=== PATIENT | female | born 1965 | race Two or more races ===

== ENCOUNTER 2021-09-15 18:38 | Emergency (ER) | payer MEDICAID, OTHER ==
[~2021-09-15] VITALS: Ht 157.5 cm; Wt 87.5 kg
[2021-09-15 19:05] VITALS: BP 176/110
[2021-09-15] MEDS ORDERED: IBUP800T26 PO (21:25)
[2021-09-15] MEDS ORDERED: CYCL-837 PO (21:25)
== END 2021-09-15 21:38 | disposition home or self-care (01) ==
LOC: ER 18:38
DX: S39.012A Strain of muscle, fascia and tendon of lower back, initial encounter (principal); I10 Essential (primary) hypertension; V53.5XXA Driver of pick-up truck or van injured in collision with car, pick-up truck or van in traffic accident, initial encounter; Y93.89 Activity, other specified; Y92.410 Unspecified street and highway as the place of occurrence of the external cause; Y99.8 Other external cause status
CPT/HCPCS: 72100

== ENCOUNTER 2022-01-03 11:54 | Emergency (ER) | payer MEDICAID ==
[~2022-01-03 11:54] MED LIST: CYCL-837 PO; IBUP800T26 PO
== END 2022-01-03 12:13 | disposition left against medical advice (07) ==
LOC: ER 11:54
DX: M54.59 Other low back pain (principal); K62.5 Hemorrhage of anus and rectum; Z53.21 Procedure and treatment not carried out due to patient leaving prior to being seen by health care provider

== ENCOUNTER 2022-01-03 14:02 | Emergency (ER) | payer MEDICAID ==
[~2022-01-03] VITALS: Ht 157.5 cm; Wt 86.0 kg
[2022-01-03 15:39] LABS: Basophils # (auto) 0.1 10 ^3/uL (0-0.2); Monocytes # (auto) 0.9 10 ^3/uL (0-1.3); Neutrophils # (auto) 6.5 10 ^3/uL (1.6-8.6); Red Cell Distribution Width 16.6 % (11.8-14.3)
[2022-01-03 15:41] LABS: Basophils % (auto) 0.8 % (0.0-2.0); Eosinophils # (auto) 0.2 10 ^3/uL (0-0.8); Eosinophils % (auto) 1.4 % (0.0-7.0); Hematocrit 40.4 % (36.0-46.0); Hemoglobin 12.8 g/dL (12.2-16.2); Lymphocytes # (auto) 3.9 10 ^3/uL (0.4-5.4); Lymphocytes % (auto) 33.6 % (10.0-50.0); Mean Corpuscular Hemoglobin 25.6 pg (28.0-32.0); Mean Corpuscular Hgb Conc. 31.6 g/dL (32.0-36.0); Monocytes % (auto) 7.4 % (0.0-12.0); Neutrophils % (auto) 56.8 % (37.0-80.0); Nucleated Red Blood Cells % 0.1 %; Red Blood Cells 4.99 10^6/uL (4.0-5.20); White Blood Cell 11.5 10^3/uL (4.4-10.8)
[2022-01-03 15:58] LABS: Albumin 3.4 g/dL (3.4-5.0); BUN/Creatinine Ratio 19.5; Calcium 8.6 mg/dL (8.5-10.1); Potassium 3.6 mmol/L (3.5-5.1)
[2022-01-03 16:00] LABS: Bilirubin, Total 0.2 mg/dL (0.2-1.0); Total Protein 7.2 g/dL (6.4-8.2)
[2022-01-03 16:01] VITALS: BP 165/97
== END 2022-01-03 16:02 | disposition home or self-care (01) ==
LOC: ER 14:02
DX: K64.4 Residual hemorrhoidal skin tags (principal); I10 Essential (primary) hypertension
CPT/HCPCS: 36415; 80053; 85025

== ENCOUNTER 2023-01-14 19:56 | Inpatient (IN) | payer MEDICAID ==
[~2023-01-14] VITALS: Ht 157.5 cm; Wt 89.1 kg
[~2023-01-14 19:56] MED LIST changes: +IBUP-1455 PO; -IBUP800T26 PO
[2023-01-14 20:38] VITALS: PULSE 117; RESP 24; O2SAT 96
[2023-01-14] MEDS ORDERED: SODIUM CHLORIDE 0.9% 500 ML IV ONE (21:00)
[2023-01-14] MEDS ORDERED: ACETAMINOPHEN 500 MG TAB PO ONE (21:00)
[2023-01-14] MEDS ORDERED: CIPROFLOXACIN 400MG/200ML 200 ML IV ONE (21:00)
[2023-01-14] MEDS ORDERED: PIPERACILLIN-TAZO 4.5GM 100 ML IV ONE (21:00)
[2023-01-14 21:07] LABS: Basophils # (auto) 0 10 ^3/uL (0-0.2); Basophils % (auto) 0.2 % (0.0-2.0); Eosinophils # (auto) 0 10 ^3/uL (0-0.8)
[2023-01-14 21:09] LABS: Hemoglobin 13.2 g/dL (12.2-16.2); Lymphocytes # (auto) 1.5 10 ^3/uL (0.4-5.4); Lymphocytes % (auto) 10.1 % (10.0-50.0); Mean Corpuscular Hemoglobin 25.2 pg (28.0-32.0); Mean Corpuscular Hgb Conc. 32.1 g/dL (32.0-36.0); Mean Corpuscular Volume 78.4 fL (80.0-100.0); Monocytes % (auto) 6.4 % (0.0-12.0); Neutrophils # (auto) 12.5 10 ^3/uL (1.6-8.6); Neutrophils % (auto) 83.3 % (37.0-80.0); Red Blood Cells 5.22 10^6/uL (4.0-5.20); Red Cell Distribution Width 17.6 % (11.8-14.3)
[2023-01-14 21:22] LABS: INR 1.22 (0.9-1.15); Partial Thromboplastin Time 34.7 SEC (24.5-34.5); Prothrombin Time 12.6 sec (9.3-11.8)
[2023-01-14 21:28] LABS: Alanine Aminotransferase 27 U/L (7-40); Albumin 4.9 g/dL (3.2-4.8); Alkaline Phosphatase 101 U/L (46-116); Anion Gap 6 (5-15); Aspartate Aminotransferase 53 U/L (13-40); BUN/Creatinine Ratio 11.5 (10.0-20.0); Blood Urea Nitrogen 9 mg/dL (9-23); Calcium 8.6 mg/dL (8.7-10.4); Carbon Dioxide 31 mmol/L (20-30); Chloride 94 mmol/L (98-107); Glucose 130 mg/dL (74-106); Potassium 3.4 mmol/L (3.5-5.1); Sodium 131 mmol/L (136-145)
[2023-01-14 21:29] LABS: Bilirubin, Total 0.5 mg/dL (0.2-1.0); Total Protein 8.2 g/dL (5.7-8.2)
[2023-01-14] MEDS ORDERED: VANCOMYCIN 1GM/200ML 250 ML IV ONE (21:45)
[2023-01-14] MEDS ORDERED: SODIUM CHLORIDE 0.9% 2,750 ML IV ONE (21:45)
[2023-01-14] MEDS ORDERED: ENOXAPARIN SOD 100 MG/1 ML SYRINGE SC ONE (22:00)
[2023-01-14] MEDS ORDERED: ASPirin-EC 325mg tab PO ONE (22:00)
[2023-01-14] MEDS ORDERED: POTASSIUM EFFERVESENT TAB 25 MEQ PO ONE (22:00)
[2023-01-14] MEDS ORDERED: MORPHINE SULFATE INJ 2 MG/ml SYRG IV PRN (22:15)
[2023-01-14] MEDS ORDERED: NITROGLYCERIN 0.4 MG SL TAB SL PRN (22:15)
[2023-01-14 22:33] VITALS: BP 164/107; PULSE 117; RESP 24; TEMP 101.4; O2SAT 96
[2023-01-14 22:39] LABS: COVID19 ANTIGEN SOFIA FIA NEGATIVE (NEGATIVE)
[2023-01-14 22:42] LABS: Rapid Influenza A Negative (Negative); Rapid Influenza B Positive (Negative)
[2023-01-14] MEDS ORDERED: FUROSEMIDE 20 MG/2 ML VIAL IV ONE (22:45)
[2023-01-15] VITALS (13 sets, daily range): BP systolic 110–144; BP diastolic 61–101; PULSE 71–98; RESP 20–28; TEMP 98.2; O2SAT 90–99
[2023-01-15] MEDS: OSELTAMIVIR 75 MG CAP PO SCH ×3 (00:30→23:43)
[2023-01-15 04:52] LABS: Eosinophils # (auto) 0 10 ^3/uL (0-0.8); Hemoglobin 12.1 g/dL (12.2-16.2); Mean Corpuscular Hemoglobin 25.1 pg (28.0-32.0); Monocytes # (auto) 1.4 10 ^3/uL (0-1.3); Neutrophils # (auto) 11.4 10 ^3/uL (1.6-8.6); Red Cell Distribution Width 17.7 % (11.8-14.3)
[2023-01-15 04:54] LABS: Basophils # (auto) 0.1 10 ^3/uL (0-0.2); Basophils % (auto) 0.4 % (0.0-2.0); Hematocrit 38.4 % (36.0-46.0); Lymphocytes # (auto) 2.1 10 ^3/uL (0.4-5.4); Mean Corpuscular Hgb Conc. 31.4 g/dL (32.0-36.0); Mean Corpuscular Volume 79.9 fL (80.0-100.0); Monocytes % (auto) 9.1 % (0.0-12.0); Neutrophils % (auto) 76.5 % (37.0-80.0); White Blood Cell 14.9 10^3/uL (4.4-10.8)
[2023-01-15 05:08] LABS: Alanine Aminotransferase 25 U/L (7-40); Albumin 4.2 g/dL (3.2-4.8); Alkaline Phosphatase 83 U/L (46-116); Anion Gap 5 (5-15); BUN/Creatinine Ratio 17.1 (10.0-20.0); Blood Urea Nitrogen 14 mg/dL (9-23); Calcium 7.6 mg/dL (8.7-10.4); Carbon Dioxide 31 mmol/L (20-30); Chloride 97 mmol/L (98-107); Glucose 115 mg/dL (74-106); Potassium 4.1 mmol/L (3.5-5.1); Sodium 133 mmol/L (136-145)
[2023-01-15 05:09] LABS: Aspartate Aminotransferase 51 U/L (13-40); Bilirubin, Total 0.5 mg/dL (0.2-1.0); Total Protein 6.9 g/dL (5.7-8.2)
[2023-01-15] MEDS ORDERED: cefTRIAXone 1GM/50ML D5W 50 ML IV SCH (09:00)
[2023-01-15] MEDS: ENOXAPARIN SOD 40 MG/0.4 ML SYRINGE SC SCH (09:41)
[2023-01-15] MEDS: FUROSEMIDE 20 MG TAB PO SCH (09:42)
[2023-01-15] MEDS: METOPROLOL TARTRATE 25 MG TAB PO SCH ×2 (09:42→23:44)
[2023-01-15] MEDS: ASPirin 81 mg TAB PO SCH (09:42)
[2023-01-15 10:01] LABS: Triglycerides 54 mg/dL (< 150)
[2023-01-15 10:02] LABS: LDL Cholesterol 79 mg/dL (< 100)
[2023-01-15 10:03] LABS: Cholesterol 158 mg/dL (< 200); HDL Cholesterol 61 mg/dL (40-59)
[2023-01-15 10:21] LABS: Urine Bacteria FEW /hpf (None Seen); Urine Blood Negative /uL (Negative); Urine Clarity Clear (Clear); Urine Protein, UAD TRACE (Negative); Urine Urobilinogen Normal (Negative); Urine WBC 1 /hpf (0 - 5)
[2023-01-15 10:23] LABS: Urine Color Straw (Yellow)
[2023-01-15] MEDS: AZITHROMYCIN 500MG/ 250ML 250 ML IV SCH (10:25)
[2023-01-15] MEDS: ALBUTEROL SULF 2.5 MG/0.5ML(0.5%) NEB SOLN NEB PRN ×2 (11:23→20:04)
[2023-01-15] MEDS: BUDESONIDE (INHALATION) 0.5 MG/2 ML NEB NEB SCH (20:04)
[2023-01-15] MEDS: TEMAZEPAM 15 MG CAP PO PRN (23:43)
[2023-01-16] VITALS (20 sets, daily range): BP systolic 117–127; BP diastolic 74–81; PULSE 67–90; RESP 18–26; TEMP 97.3–98.3; O2SAT 90–99
[2023-01-16] MEDS: BUDESONIDE (INHALATION) 0.5 MG/2 ML NEB NEB SCH ×2 (07:35→18:45)
[2023-01-16] MEDS: AZITHROMYCIN 500MG/ 250ML 250 ML IV SCH (10:09)
[2023-01-16] MEDS: ENOXAPARIN SOD 40 MG/0.4 ML SYRINGE SC SCH (10:10)
[2023-01-16] MEDS: FUROSEMIDE 20 MG TAB PO SCH (10:10)
[2023-01-16] MEDS: ASPirin 81 mg TAB PO SCH (10:10)
[2023-01-16] MEDS: OSELTAMIVIR 75 MG CAP PO SCH ×2 (10:10→22:07)
[2023-01-16] MEDS: METOPROLOL TARTRATE 25 MG TAB PO SCH ×2 (10:11→22:00)
[2023-01-16] MEDS: ACETAMINOPHEN 325 MG TAB PO PRN ×2 (10:58→23:13)
[2023-01-16] MEDS: ALBUTEROL SULF 2.5 MG/0.5ML(0.5%) NEB SOLN NEB PRN ×2 (11:00→23:40)
[2023-01-16] MEDS: methylPREDNISolone SOD SUCC 40 MG/ML VL IV SCH ×2 (14:59→22:07)
[2023-01-16] MEDS: TEMAZEPAM 15 MG CAP PO PRN (23:13)
[2023-01-17] VITALS (40 sets, daily range): BP systolic 87–194; BP diastolic 60–159; PULSE 47–78; RESP 12–20; TEMP 97.4–98.8; O2SAT 85–100
[2023-01-17] MEDS: methylPREDNISolone SOD SUCC 40 MG/ML VL IV SCH ×4 (06:22→22:16)
[2023-01-17] MEDS: ONDANSETRON HCL 4 MG/2 ML VIAL IV PRN ×2 (06:56→11:34)
[2023-01-17 06:58] LABS: Basophils # (auto) 0 10 ^3/uL (0-0.2); Basophils % (auto) 0.2 % (0.0-2.0); Eosinophils # (auto) 0 10 ^3/uL (0-0.8); Hemoglobin 11.8 g/dL (12.2-16.2); Lymphocytes # (auto) 1.9 10 ^3/uL (0.4-5.4); Monocytes # (auto) 0.7 10 ^3/uL (0-1.3)
[2023-01-17 07:00] LABS: Hematocrit 37.4 % (36.0-46.0); Lymphocytes % (auto) 27.7 % (10.0-50.0); Mean Corpuscular Hemoglobin 25.5 pg (28.0-32.0); Mean Corpuscular Hgb Conc. 31.6 g/dL (32.0-36.0); Mean Corpuscular Volume 80.6 fL (80.0-100.0); Monocytes % (auto) 9.8 % (0.0-12.0); Neutrophils # (auto) 4.2 10 ^3/uL (1.6-8.6); Neutrophils % (auto) 62.3 % (37.0-80.0); Nucleated Red Blood Cells % 0.1 %; Red Blood Cells 4.64 10^6/uL (4.0-5.20); Red Cell Distribution Width 17.2 % (11.8-14.3); White Blood Cell 6.7 10^3/uL (4.4-10.8)
[2023-01-17] MEDS: BUDESONIDE (INHALATION) 0.5 MG/2 ML NEB NEB SCH ×2 (07:12→19:02)
[2023-01-17 07:29] LABS: Alanine Aminotransferase 60 U/L (7-40); Alkaline Phosphatase 81 U/L (46-116); Anion Gap 3 (5-15); Aspartate Aminotransferase 71 U/L (13-40); BUN/Creatinine Ratio 21.8 (10.0-20.0); Bilirubin, Total 0.3 mg/dL (0.2-1.0); Blood Urea Nitrogen 12 mg/dL (9-23); Calcium 8.6 mg/dL (8.5-10.1); Carbon Dioxide 37 mmol/L (20-30); Chloride 97 mmol/L (98-107); Glucose 97 mg/dL (74-106); Sodium 137 mmol/L (136-145); Total Protein 6.6 g/dL (5.7-8.2)
[2023-01-17] MEDS: AZITHROMYCIN 500MG/ 250ML 250 ML IV SCH (10:21)
[2023-01-17] MEDS: OSELTAMIVIR 75 MG CAP PO SCH ×2 (10:22→22:17)
[2023-01-17] MEDS: FUROSEMIDE 20 MG TAB PO SCH (10:22)
[2023-01-17] MEDS: ENOXAPARIN SOD 40 MG/0.4 ML SYRINGE SC SCH (10:22)
[2023-01-17] MEDS: ASPirin 81 mg TAB PO SCH (10:23)
[2023-01-17] MEDS: METOPROLOL TARTRATE 25 MG TAB PO SCH ×2 (10:23→22:00)
[2023-01-17] MEDS: ACETAMINOPHEN 325 MG TAB PO PRN (11:35)
[2023-01-17 11:52] LABS: Base Excess 8.2 mmol/L (-2.0-2.0)
[2023-01-17] MEDS ORDERED: LORazepam 2MG/ML-1ML VIAL IV PRN (13:00)
[2023-01-17] MEDS ORDERED: ETOMIDATE (2MG/ML) 20ML VIAL IV ONE ×2 (16:18→16:34)
[2023-01-17] MEDS ORDERED: ROCURONIUM 10MG/ML 10ML VIAL IV ONE (16:18)
[2023-01-17] MEDS ORDERED: SUCCINYLCHOLINE CHLORIDE 20 MG/ML 10ML VIAL IV ONE ×2 (16:19→16:34)
[2023-01-17] MEDS ORDERED: fentaNYL Drip 2500mCg/250mlNS 250 ML IV ONE (16:20)
[2023-01-17] MEDS ORDERED: MIDAZOLAM DRIP 50 mg/50mL 50 ML IV ONE (16:21)
[2023-01-17] MEDS ORDERED: PROPOFOL 100 ML IV ONE (16:50)
[2023-01-17] MEDS: fentaNYL Drip 2500mCg/250mlNS 250 ML IV SCH ×2 (16:59→23:45)
[2023-01-17] MEDS: NOREPINEPHRINE 8 MG/250ML KIT 250 ML IV SCH (17:00)
[2023-01-17] MEDS: MIDAZOLAM DRIP 50 mg/50mL 50 ML IV SCH ×2 (17:02→20:33)
[2023-01-17] MEDS: PROPOFOL 100 ML IV SCH (17:03)
[2023-01-17 17:21] LABS: Base Excess 12.1 mmol/L (-2.0-2.0)
[2023-01-17] MEDS: PIPERACILLIN-TAZOB 3.375GM 100 ML IV SCH (18:26)
[2023-01-17 19:00] LABS: Base Excess 5.8 mmol/L (-2.0-2.0)
[2023-01-17] MEDS: ALBUTEROL SULF 2.5 MG/0.5ML(0.5%) NEB SOLN NEB PRN (19:02)
[2023-01-17] MEDS ORDERED: FUROSEMIDE 20 MG/2 ML VIAL IV ONE (23:00)
[2023-01-17] MEDS ORDERED: FUROSEMIDE 20 MG/2 ML VIAL ONE (23:38)
[2023-01-18] VITALS (89 sets, daily range): BP systolic 86–168; BP diastolic 49–103; PULSE 48–92; RESP 0–28; TEMP 97.9–99.5; O2SAT 95–100
[2023-01-18] MEDS: ALBUTEROL SULF 2.5 MG/0.5ML(0.5%) NEB SOLN NEB PRN ×4 (00:14→22:48)
[2023-01-18] MEDS: PIPERACILLIN-TAZOB 3.375GM 100 ML IV SCH ×3 (02:00→18:18)
[2023-01-18 05:26] LABS: Basophils # (auto) 0 10 ^3/uL (0-0.2); Basophils % (auto) 0.1 % (0.0-2.0); Eosinophils # (auto) 0 10 ^3/uL (0-0.8); Mean Corpuscular Hemoglobin 25.1 pg (28.0-32.0)
[2023-01-18 05:28] LABS: Hematocrit 35.7 % (36.0-46.0); Hemoglobin 11.2 g/dL (12.2-16.2); Lymphocytes # (auto) 1.4 10 ^3/uL (0.4-5.4); Lymphocytes % (auto) 24.6 % (10.0-50.0); Mean Corpuscular Hgb Conc. 31.4 g/dL (32.0-36.0); Mean Corpuscular Volume 79.7 fL (80.0-100.0); Monocytes # (auto) 0.5 10 ^3/uL (0-1.3); Monocytes % (auto) 8.3 % (0.0-12.0); Neutrophils # (auto) 3.8 10 ^3/uL (1.6-8.6); Nucleated Red Blood Cells % 0.3 %; Red Blood Cells 4.47 10^6/uL (4.0-5.20); Red Cell Distribution Width 17.7 % (11.8-14.3); White Blood Cell 5.7 10^3/uL (4.4-10.8)
[2023-01-18 05:53] LABS: Alanine Aminotransferase 46 U/L (7-40); Albumin 3.9 g/dL (3.2-4.8); Alkaline Phosphatase 72 U/L (46-116); Anion Gap 7 (5-15); Aspartate Aminotransferase 26 U/L (13-40); BUN/Creatinine Ratio 15.9 (10.0-20.0); Bilirubin, Total 0.5 mg/dL (0.2-1.0); Blood Urea Nitrogen 14 mg/dL (9-23); Calcium 8.3 mg/dL (8.5-10.1); Carbon Dioxide 36 mmol/L (20-30); Chloride 94 mmol/L (98-107); Glucose 155 mg/dL (74-106); Sodium 137 mmol/L (136-145); Total Protein 6.3 g/dL (5.7-8.2)
[2023-01-18] MEDS: methylPREDNISolone SOD SUCC 40 MG/ML VL IV SCH ×4 (06:00→22:34)
[2023-01-18] MEDS: fentaNYL Drip 2500mCg/250mlNS 250 ML IV SCH ×2 (06:39→13:53)
[2023-01-18 07:26] LABS: Base Excess 12.6 mmol/L (-2.0-2.0)
[2023-01-18] MEDS: MIDAZOLAM DRIP 50 mg/50mL 50 ML IV SCH ×2 (07:30→12:16)
[2023-01-18] MEDS: BUDESONIDE (INHALATION) 0.5 MG/2 ML NEB NEB SCH ×2 (07:33→18:30)
[2023-01-18] MEDS ORDERED: IOHEXOL 350 MG/ML 100ML IJ ONE (08:39)
[2023-01-18] MEDS: METOPROLOL TARTRATE 25 MG TAB PO SCH ×2 (10:00→22:00)
[2023-01-18] MEDS: OSELTAMIVIR 75 MG CAP PO SCH ×2 (10:26→22:35)
[2023-01-18] MEDS: ENOXAPARIN SOD 40 MG/0.4 ML SYRINGE SC SCH (10:26)
[2023-01-18] MEDS: FUROSEMIDE 20 MG/2 ML VIAL IV SCH (10:27)
[2023-01-18] MEDS: AZITHROMYCIN 500MG/ 250ML 250 ML IV SCH (10:27)
[2023-01-18] MEDS: ASPirin 81 mg TAB PO SCH (10:44)
[2023-01-18] MEDS ORDERED: TPN PER PHARMACY 0 ML IV SCH (11:15)
[2023-01-18 11:18] LABS: Phosphorus 2.5 mg/dL (2.4-5.1)
[2023-01-18 11:55] LABS: Magnesium 1.9 mg/dL (1.6-2.6)
[2023-01-18] MEDS: NOREPINEPHRINE 8 MG/250ML KIT 250 ML IV SCH (12:45)
[2023-01-18] MEDS ORDERED: DOPamine 1600MCG/ML D5W 250 ML IV ONE (13:45)
[2023-01-18] MEDS: DOPamine 1600MCG/ML D5W 250 ML IV SCH (13:55)
[2023-01-18] MEDS: PROPOFOL 100 ML IV SCH (14:51)
[2023-01-18] MEDS ORDERED: CALCIUM GLUC 1,000mg/50ml-NS 50 ML IV ONE (16:00)
[2023-01-18] MEDS: TPN PER PHARMACY IV NR ×20 (20:00→22:56)
[2023-01-18] MEDS: DOXYCYCLINE 100MG/250ML 250 ML IV SCH (22:35)
[2023-01-18] MEDS: ACCU-CHEK COMFORT CURVE STRIP VI SCH (23:31)
[2023-01-18] MEDS: InsuLIN REG 1unit/0.01ml Soln (100units/ml) SC SCH (23:32)
[2023-01-19] VITALS (109 sets, daily range): BP systolic 84–179; BP diastolic 52–92; PULSE 50–75; RESP 7–20; TEMP 97.7–98.6; O2SAT 95–100
[2023-01-19] MEDS ORDERED: DEXTROSE (50%) 50ML SYRG IV SCH
[2023-01-19] MEDS: PIPERACILLIN-TAZOB 3.375GM 100 ML IV SCH ×3 (01:11→18:31)
[2023-01-19] MEDS: fentaNYL Drip 2500mCg/250mlNS 250 ML IV SCH ×2 (01:39→16:08)
[2023-01-19 04:12] LABS: Basophils # (auto) 0 10 ^3/uL (0-0.2); Eosinophils # (auto) 0 10 ^3/uL (0-0.8); Neutrophils # (auto) 5.1 10 ^3/uL (1.6-8.6); Nucleated Red Blood Cells % 0.1 %; White Blood Cell 7.3 10^3/uL (4.4-10.8)
[2023-01-19 04:13] LABS: Basophils % (auto) 0.4 % (0.0-2.0); Hematocrit 34.6 % (36.0-46.0); Lymphocytes # (auto) 1.5 10 ^3/uL (0.4-5.4); Lymphocytes % (auto) 20.2 % (10.0-50.0); Mean Corpuscular Hemoglobin 25.1 pg (28.0-32.0); Mean Corpuscular Hgb Conc. 31.8 g/dL (32.0-36.0); Mean Corpuscular Volume 78.9 fL (80.0-100.0); Monocytes # (auto) 0.7 10 ^3/uL (0-1.3); Monocytes % (auto) 9.2 % (0.0-12.0); Neutrophils % (auto) 70.2 % (37.0-80.0); Red Blood Cells 4.39 10^6/uL (4.0-5.20); Red Cell Distribution Width 17.4 % (11.8-14.3)
[2023-01-19] MEDS: DOPamine 1600MCG/ML D5W 250 ML IV SCH ×2 (04:20→18:33)
[2023-01-19 04:28] LABS: Alanine Aminotransferase 33 U/L (7-40); Albumin 3.8 g/dL (3.2-4.8); Alkaline Phosphatase 64 U/L (46-116); Anion Gap 3 (5-15); Aspartate Aminotransferase 19 U/L (13-40); BUN/Creatinine Ratio 17.3 (10.0-20.0); Bilirubin, Total 0.4 mg/dL (0.2-1.0); Blood Urea Nitrogen 13 mg/dL (9-23); Calcium 8.2 mg/dL (8.7-10.4); Carbon Dioxide 39 mmol/L (20-30); Chloride 97 mmol/L (98-107); Glucose 182 mg/dL (74-106); Magnesium 2.4 mg/dL (1.6-2.6); Phosphorus 3.1 mg/dL (2.4-5.1); Sodium 139 mmol/L (136-145); Total Protein 6.2 g/dL (5.7-8.2)
[2023-01-19] MEDS: methylPREDNISolone SOD SUCC 40 MG/ML VL IV SCH ×3 (06:06→22:09)
[2023-01-19] MEDS: ACCU-CHEK COMFORT CURVE STRIP VI SCH ×4 (06:06→23:50)
[2023-01-19] MEDS: InsuLIN REG 1unit/0.01ml Soln (100units/ml) SC SCH ×4 (06:07→23:51)
[2023-01-19 07:57] LABS: Base Excess 11.5 mmol/L (-2.0-2.0)
[2023-01-19] MEDS: OSELTAMIVIR 75 MG CAP PO SCH ×2 (09:36→22:10)
[2023-01-19] MEDS: ENOXAPARIN SOD 40 MG/0.4 ML SYRINGE SC SCH (09:36)
[2023-01-19] MEDS: ASPirin 81 mg TAB PO SCH (09:37)
[2023-01-19] MEDS: DOXYCYCLINE 100MG/250ML 250 ML IV SCH ×2 (09:38→22:09)
[2023-01-19] MEDS: METOPROLOL TARTRATE 25 MG TAB PO SCH ×2 (10:00→22:00)
[2023-01-19] MEDS: ALBUTEROL SULF 2.5 MG/0.5ML(0.5%) NEB SOLN NEB PRN ×2 (10:19→18:36)
[2023-01-19] MEDS: BUDESONIDE (INHALATION) 0.5 MG/2 ML NEB NEB SCH ×2 (10:19→18:36)
[2023-01-19] MEDS: MIDAZOLAM DRIP 50 mg/50mL 50 ML IV SCH (11:07)
[2023-01-19] MEDS: FUROSEMIDE 20 MG/2 ML VIAL IV SCH (11:08)
[2023-01-19] MEDS ORDERED: CALCIUM GLUC 1,000mg/50ml-NS 50 ML IV ONE (13:00)
[2023-01-19] MEDS: PROPOFOL 100 ML IV SCH (16:39)
[2023-01-19] MEDS: NOREPINEPHRINE 8 MG/250ML KIT 250 ML IV SCH (18:30)
[2023-01-19] MEDS ORDERED: TPN PER PHARMACY IV NR ×10 (20:00)
[2023-01-20] VITALS (107 sets, daily range): BP systolic 84–138; BP diastolic 50–85; PULSE 51–81; RESP 13–19; TEMP 96.6–99; O2SAT 94–100
[2023-01-20] MEDS: PIPERACILLIN-TAZOB 3.375GM 100 ML IV SCH ×3 (02:00→18:07)
[2023-01-20] MEDS: ALBUTEROL SULF 2.5 MG/0.5ML(0.5%) NEB SOLN NEB PRN ×3 (02:04→21:56)
[2023-01-20] MEDS: MIDAZOLAM DRIP 50 mg/50mL 50 ML IV SCH ×4 (03:46→19:48)
[2023-01-20 04:40] LABS: Alanine Aminotransferase 27 U/L (7-40); Albumin 3.8 g/dL (3.2-4.8); Alkaline Phosphatase 56 U/L (46-116); Anion Gap 4 (5-15); Aspartate Aminotransferase 14 U/L (13-40); BUN/Creatinine Ratio 21.9 (10.0-20.0); Blood Urea Nitrogen 14 mg/dL (9-23); Calcium 8.1 mg/dL (8.7-10.4); Carbon Dioxide 37 mmol/L (20-30); Chloride 97 mmol/L (98-107); Glucose 175 mg/dL (74-106); Magnesium 2.4 mg/dL (1.6-2.6); Potassium 3.8 mmol/L (3.5-5.1); Sodium 138 mmol/L (136-145)
[2023-01-20 04:41] LABS: Bilirubin, Total 0.3 mg/dL (0.2-1.0); Phosphorus 3.9 mg/dL (2.4-5.1)
[2023-01-20] MEDS: ACCU-CHEK COMFORT CURVE STRIP VI SCH ×3 (05:15→18:07)
[2023-01-20] MEDS: methylPREDNISolone SOD SUCC 40 MG/ML VL IV SCH ×3 (05:15→22:07)
[2023-01-20] MEDS: InsuLIN REG 1unit/0.01ml Soln (100units/ml) SC SCH ×3 (05:16→18:28)
[2023-01-20] MEDS: BUDESONIDE (INHALATION) 0.5 MG/2 ML NEB NEB SCH ×2 (06:27→21:56)
[2023-01-20] MEDS: DOPamine 1600MCG/ML D5W 250 ML IV SCH (09:26)
[2023-01-20] MEDS: FUROSEMIDE 20 MG/2 ML VIAL IV SCH (09:26)
[2023-01-20] MEDS: DOXYCYCLINE 100MG/250ML 250 ML IV SCH ×2 (09:29→22:07)
[2023-01-20] MEDS: ASPirin 81 mg TAB PO SCH (09:30)
[2023-01-20] MEDS: METOPROLOL TARTRATE 25 MG TAB PO SCH ×2 (09:30→22:00)
[2023-01-20] MEDS: ENOXAPARIN SOD 40 MG/0.4 ML SYRINGE SC SCH (09:31)
[2023-01-20] MEDS ORDERED: QUEtiapine FUMARATE 25 MG TAB PO ONE (10:15)
[2023-01-20] MEDS: PROPOFOL 100 ML IV SCH (11:28)
[2023-01-20 12:43] LABS: Base Excess 11.4 mmol/L (-2.0-2.0)
[2023-01-20] MEDS: fentaNYL Drip 2500mCg/250mlNS 250 ML IV SCH (15:00)
[2023-01-20] MEDS: GABAPENTIN 300 MG CAP PO SCH ×2 (18:07→22:07)
[2023-01-20] MEDS: NOREPINEPHRINE 8 MG/250ML KIT 250 ML IV SCH (18:50)
[2023-01-20] MEDS ORDERED: TPN PER PHARMACY IV NR ×20 (20:00)
[2023-01-20] MEDS: QUEtiapine FUMARATE 25 MG TAB PO SCH (22:07)
[2023-01-21] VITALS (97 sets, daily range): BP systolic 86–140; BP diastolic 52–86; PULSE 50–72; RESP 18; TEMP 97.3–99.1; O2SAT 88–100
[2023-01-21] MEDS: DOPamine 1600MCG/ML D5W 250 ML IV SCH ×2 (00:05→06:13)
[2023-01-21] MEDS: InsuLIN REG 1unit/0.01ml Soln (100units/ml) SC SCH ×4 (00:27→18:24)
[2023-01-21] MEDS: ACCU-CHEK COMFORT CURVE STRIP VI SCH ×4 (00:27→18:23)
[2023-01-21] MEDS: fentaNYL Drip 2500mCg/250mlNS 250 ML IV SCH ×3 (01:26→22:15)
[2023-01-21] MEDS: PIPERACILLIN-TAZOB 3.375GM 100 ML IV SCH ×3 (01:26→20:39)
[2023-01-21] MEDS: MIDAZOLAM DRIP 50 mg/50mL 50 ML IV SCH ×4 (03:12→22:14)
[2023-01-21 04:51] LABS: Basophils # (auto) 0 10 ^3/uL (0-0.2); Eosinophils # (auto) 0 10 ^3/uL (0-0.8); Hemoglobin 10.5 g/dL (12.2-16.2); Nucleated Red Blood Cells % 0.1 %; Red Cell Distribution Width 17.4 % (11.8-14.3)
[2023-01-21 04:55] LABS: Basophils % (auto) 0.3 % (0.0-2.0); Hematocrit 33.5 % (36.0-46.0); Lymphocytes # (auto) 1.8 10 ^3/uL (0.4-5.4); Lymphocytes % (auto) 14.8 % (10.0-50.0); Mean Corpuscular Hemoglobin 24.9 pg (28.0-32.0); Mean Corpuscular Hgb Conc. 31.5 g/dL (32.0-36.0); Mean Corpuscular Volume 79.3 fL (80.0-100.0); Monocytes # (auto) 0.9 10 ^3/uL (0-1.3); Monocytes % (auto) 7.5 % (0.0-12.0); Neutrophils # (auto) 9.4 10 ^3/uL (1.6-8.6); Neutrophils % (auto) 77.4 % (37.0-80.0); Red Blood Cells 4.22 10^6/uL (4.0-5.20); White Blood Cell 12.1 10^3/uL (4.4-10.8)
[2023-01-21 05:09] LABS: Alanine Aminotransferase 26 U/L (7-40); Albumin 3.7 g/dL (3.2-4.8); Alkaline Phosphatase 54 U/L (46-116); Anion Gap 3 (5-15); Aspartate Aminotransferase 16 U/L (13-40); BUN/Creatinine Ratio 17.4 (10.0-20.0); Bilirubin, Total 0.3 mg/dL (0.2-1.0); Blood Urea Nitrogen 12 mg/dL (9-23); Calcium 7.8 mg/dL (8.7-10.4); Carbon Dioxide 37 mmol/L (20-30); Chloride 99 mmol/L (98-107); Glucose 198 mg/dL (74-106); Magnesium 2.4 mg/dL (1.6-2.6); Phosphorus 3.9 mg/dL (2.4-5.1); Potassium 4.1 mmol/L (3.5-5.1); Sodium 139 mmol/L (136-145)
[2023-01-21] MEDS: methylPREDNISolone SOD SUCC 40 MG/ML VL IV SCH ×3 (05:30→20:40)
[2023-01-21] MEDS: GABAPENTIN 300 MG CAP PO SCH ×3 (05:30→20:39)
[2023-01-21] MEDS: ALBUTEROL SULF 2.5 MG/0.5ML(0.5%) NEB SOLN NEB PRN ×2 (06:10→22:29)
[2023-01-21] MEDS: BUDESONIDE (INHALATION) 0.5 MG/2 ML NEB NEB SCH ×2 (06:10→22:29)
[2023-01-21 06:50] LABS: Base Excess 8.1 mmol/L (-2.0-2.0)
[2023-01-21] MEDS: DOXYCYCLINE 100MG/250ML 250 ML IV SCH ×2 (10:02→20:39)
[2023-01-21] MEDS: ENOXAPARIN SOD 40 MG/0.4 ML SYRINGE SC SCH (10:03)
[2023-01-21] MEDS: FUROSEMIDE 20 MG/2 ML VIAL IV SCH (10:03)
[2023-01-21] MEDS: QUEtiapine FUMARATE 25 MG TAB PO SCH ×2 (10:03→20:39)
[2023-01-21] MEDS: ASPirin 81 mg TAB PO SCH (10:03)
[2023-01-21] MEDS ORDERED: CALCIUM GLUC 1,000mg/50ml-NS 50 ML IV ONE (10:45)
[2023-01-21] MEDS: PROPOFOL 100 ML IV SCH (15:42)
[2023-01-21] MEDS: NOREPINEPHRINE 8 MG/250ML KIT 250 ML IV SCH (19:00)
[2023-01-21] MEDS ORDERED: TPN PER PHARMACY IV NR ×10 (20:00)
[2023-01-21] MEDS ORDERED: FUROSEMIDE 20 MG/2 ML VIAL IV ONE (22:00)
[2023-01-21] MEDS: INSULIN LANTUS (GLARGINE) 1 /0.01ml (100units/ml) SC SCH (22:15)
[2023-01-22] VITALS (107 sets, daily range): BP systolic 81–119; BP diastolic 41–72; PULSE 56–68; RESP 14–19; TEMP 98.2–99.3; O2SAT 93–100
[2023-01-22] MEDS: ACCU-CHEK COMFORT CURVE STRIP VI SCH ×5 (00:20→23:42)
[2023-01-22] MEDS: InsuLIN REG 1unit/0.01ml Soln (100units/ml) SC SCH ×5 (00:21→23:43)
[2023-01-22 04:32] LABS: Alanine Aminotransferase 71 U/L (7-40); Alkaline Phosphatase 51 U/L (46-116); Anion Gap 3 (5-15); Aspartate Aminotransferase 44 U/L (13-40); Carbon Dioxide 38 mmol/L (20-30); Chloride 98 mmol/L (98-107); Glucose 202 mg/dL (74-106); Potassium 4.2 mmol/L (3.5-5.1); Sodium 139 mmol/L (136-145)
[2023-01-22 04:33] LABS: Albumin 3.6 g/dL (3.2-4.8); BUN/Creatinine Ratio 25.3 (10.0-20.0); Blood Urea Nitrogen 19 mg/dL (9-23); Magnesium 2.5 mg/dL (1.6-2.6)
[2023-01-22 04:35] LABS: Bilirubin, Total 0.3 mg/dL (0.2-1.0); Total Protein 5.9 g/dL (5.7-8.2)
[2023-01-22] MEDS: PIPERACILLIN-TAZOB 3.375GM 100 ML IV SCH ×2 (04:35→10:56)
[2023-01-22] MEDS: DOPamine 1600MCG/ML D5W 250 ML IV SCH ×2 (04:35→16:22)
[2023-01-22] MEDS: methylPREDNISolone SOD SUCC 40 MG/ML VL IV SCH ×3 (05:19→21:55)
[2023-01-22] MEDS: GABAPENTIN 300 MG CAP PO SCH ×3 (05:19→21:55)
[2023-01-22] MEDS: MIDAZOLAM DRIP 50 mg/50mL 50 ML IV SCH ×3 (05:34→20:16)
[2023-01-22] MEDS: ALBUTEROL SULF 2.5 MG/0.5ML(0.5%) NEB SOLN NEB PRN (06:32)
[2023-01-22] MEDS: BUDESONIDE (INHALATION) 0.5 MG/2 ML NEB NEB SCH ×2 (06:32→22:15)
[2023-01-22 08:10] LABS: Basophils # (auto) 0 10 ^3/uL (0-0.2); Basophils % (auto) 0.3 % (0.0-2.0); Eosinophils # (auto) 0 10 ^3/uL (0-0.8); Eosinophils % (auto) 0.1 % (0.0-7.0); Hematocrit 33.1 % (36.0-46.0); Hemoglobin 10.4 g/dL (12.2-16.2); Lymphocytes # (auto) 1.6 10 ^3/uL (0.4-5.4); Lymphocytes % (auto) 13.5 % (10.0-50.0); Mean Corpuscular Hemoglobin 25.1 pg (28.0-32.0); Mean Corpuscular Hgb Conc. 31.6 g/dL (32.0-36.0); Mean Corpuscular Volume 79.6 fL (80.0-100.0); Monocytes # (auto) 0.7 10 ^3/uL (0-1.3); Monocytes % (auto) 5.6 % (0.0-12.0); Neutrophils # (auto) 9.6 10 ^3/uL (1.6-8.6); Neutrophils % (auto) 80.5 % (37.0-80.0); Nucleated Red Blood Cells % 0.1 %; Red Blood Cells 4.15 10^6/uL (4.0-5.20); Red Cell Distribution Width 18.1 % (11.8-14.3)
[2023-01-22] MEDS: FUROSEMIDE 20 MG/2 ML VIAL IV SCH (08:45)
[2023-01-22] MEDS: ENOXAPARIN SOD 40 MG/0.4 ML SYRINGE SC SCH (08:45)
[2023-01-22] MEDS: QUEtiapine FUMARATE 25 MG TAB PO SCH ×2 (08:45→21:55)
[2023-01-22] MEDS: DOXYCYCLINE 100MG/250ML 250 ML IV SCH (08:45)
[2023-01-22] MEDS: ASPirin 81 mg TAB PO SCH (08:47)
[2023-01-22] MEDS: fentaNYL Drip 2500mCg/250mlNS 250 ML IV SCH ×2 (11:04→22:42)
[2023-01-22] MEDS: IPRATROPIUM BROM 0.5 MG/2.5ML INH SOL NEB SCH ×3 (14:55→22:15)
[2023-01-22] MEDS: ALBUTEROL SULF 2.5 MG/0.5ML(0.5%) NEB SOLN NEB SCH ×3 (14:55→22:15)
[2023-01-22] MEDS ORDERED: cefTRIAXone 1GM/50ML D5W 50 ML IV ONE (15:04)
[2023-01-22] MEDS: cefTRIAXone 1GM/50ML D5W 50 ML IV SCH (15:05)
[2023-01-22] MEDS: NOREPINEPHRINE 8 MG/250ML KIT 250 ML IV SCH (16:22)
[2023-01-22] MEDS: PROPOFOL 100 ML IV SCH ×2 (17:00→20:17)
[2023-01-22] MEDS ORDERED: TPN PER PHARMACY IV NR ×9 (20:00)
[2023-01-22] MEDS: TPN PER PHARMACY IV NR ×8 (20:16)
[2023-01-22] MEDS: INSULIN LANTUS (GLARGINE) 1 /0.01ml (100units/ml) SC SCH (22:01)
[2023-01-23] VITALS (111 sets, daily range): BP systolic 85–118; BP diastolic 43–70; PULSE 56–120; RESP 15–21; TEMP 98.2–99.7; O2SAT 81–100
[2023-01-23] MEDS: MIDAZOLAM DRIP 50 mg/50mL 50 ML IV SCH ×2 (02:06→15:41)
[2023-01-23] MEDS: IPRATROPIUM BROM 0.5 MG/2.5ML INH SOL NEB SCH ×6 (02:15→22:34)
[2023-01-23] MEDS: ALBUTEROL SULF 2.5 MG/0.5ML(0.5%) NEB SOLN NEB SCH ×6 (02:15→22:34)
[2023-01-23 03:58] LABS: Eosinophils # (auto) 0 10 ^3/uL (0-0.8); Hemoglobin 10.2 g/dL (12.2-16.2); Monocytes # (auto) 0.9 10 ^3/uL (0-1.3); Monocytes % (auto) 6.8 % (0.0-12.0); Red Cell Distribution Width 17.6 % (11.8-14.3)
[2023-01-23 04:01] LABS: Basophils # (auto) 0.1 10 ^3/uL (0-0.2); Basophils % (auto) 0.4 % (0.0-2.0); Hematocrit 32.3 % (36.0-46.0); Lymphocytes # (auto) 1.9 10 ^3/uL (0.4-5.4); Lymphocytes % (auto) 14.1 % (10.0-50.0); Mean Corpuscular Hemoglobin 25.3 pg (28.0-32.0); Mean Corpuscular Hgb Conc. 31.5 g/dL (32.0-36.0); Mean Corpuscular Volume 80.3 fL (80.0-100.0); Neutrophils # (auto) 10.5 10 ^3/uL (1.6-8.6); Neutrophils % (auto) 78.7 % (37.0-80.0); Red Blood Cells 4.03 10^6/uL (4.0-5.20); White Blood Cell 13.3 10^3/uL (4.4-10.8)
[2023-01-23 04:19] LABS: Alanine Aminotransferase 106 U/L (7-40); Albumin 3.6 g/dL (3.2-4.8); Alkaline Phosphatase 50 U/L (46-116); Anion Gap 2 (5-15); Aspartate Aminotransferase 40 U/L (13-40); BUN/Creatinine Ratio 38.1 (10.0-20.0); Blood Urea Nitrogen 24 mg/dL (9-23); Carbon Dioxide 36 mmol/L (20-30); Chloride 100 mmol/L (98-107); Glucose 180 mg/dL (74-106); Magnesium 2.6 mg/dL (1.6-2.6); Phosphorus 3.9 mg/dL (2.4-5.1); Potassium 4.8 mmol/L (3.5-5.1); Sodium 138 mmol/L (136-145)
[2023-01-23 04:20] LABS: Bilirubin, Total 0.3 mg/dL (0.2-1.0); Total Protein 5.8 g/dL (5.7-8.2)
[2023-01-23] MEDS: GABAPENTIN 300 MG CAP PO SCH ×3 (05:25→23:00)
[2023-01-23] MEDS: methylPREDNISolone SOD SUCC 40 MG/ML VL IV SCH ×3 (05:25→21:46)
[2023-01-23] MEDS: ACCU-CHEK COMFORT CURVE STRIP VI SCH ×4 (05:26→23:06)
[2023-01-23] MEDS: InsuLIN REG 1unit/0.01ml Soln (100units/ml) SC SCH ×4 (05:27→23:14)
[2023-01-23] MEDS: BUDESONIDE (INHALATION) 0.5 MG/2 ML NEB NEB SCH ×2 (06:28→22:34)
[2023-01-23] MEDS: cefTRIAXone 1GM/50ML D5W 50 ML IV SCH (07:21)
[2023-01-23] MEDS: QUEtiapine FUMARATE 25 MG TAB PO SCH ×2 (07:48→21:46)
[2023-01-23] MEDS: ASPirin 81 mg TAB PO SCH (07:48)
[2023-01-23] MEDS: ENOXAPARIN SOD 40 MG/0.4 ML SYRINGE SC SCH (07:48)
[2023-01-23] MEDS: DOPamine 1600MCG/ML D5W 250 ML IV SCH (07:49)
[2023-01-23] MEDS: FUROSEMIDE 20 MG/2 ML VIAL IV SCH (07:49)
[2023-01-23 07:52] LABS: Base Excess 7.1 mmol/L (-2.0-2.0)
[2023-01-23] MEDS ORDERED: cefTRIAXone SOD 500 MG VL IV SCH (09:00)
[2023-01-23] MEDS: fentaNYL Drip 2500mCg/250mlNS 250 ML IV SCH (11:16)
[2023-01-23] MEDS ORDERED: CALCIUM GLUC 1,000mg/50ml-NS 50 ML IV ONE ×2 (13:45→15:31)
[2023-01-23] MEDS: NOREPINEPHRINE 8 MG/250ML KIT 250 ML IV SCH (15:41)
[2023-01-23] MEDS: TPN PER PHARMACY IV NR ×8 (19:48)
[2023-01-23] MEDS ORDERED: TPN PER PHARMACY IV NR ×8 (20:00)
[2023-01-23] MEDS: INSULIN LANTUS (GLARGINE) 1 /0.01ml (100units/ml) SC SCH (23:13)
[2023-01-24] VITALS (111 sets, daily range): BP systolic 86–147; BP diastolic 46–96; PULSE 66–135; RESP 11–21; TEMP 97.5–100.4; O2SAT 88–100
[2023-01-24] MEDS: DOPamine 1600MCG/ML D5W 250 ML IV SCH ×2 (01:00→10:22)
[2023-01-24] MEDS: MIDAZOLAM DRIP 50 mg/50mL 50 ML IV SCH (01:17)
[2023-01-24] MEDS: fentaNYL Drip 2500mCg/250mlNS 250 ML IV SCH ×2 (01:19→18:37)
[2023-01-24] MEDS: IPRATROPIUM BROM 0.5 MG/2.5ML INH SOL NEB SCH ×6 (02:21→22:20)
[2023-01-24] MEDS: ALBUTEROL SULF 2.5 MG/0.5ML(0.5%) NEB SOLN NEB SCH ×6 (02:21→22:20)
[2023-01-24 03:50] LABS: Basophils # (auto) 0 10 ^3/uL (0-0.2); Basophils % (auto) 0.2 % (0.0-2.0); Eosinophils # (auto) 0 10 ^3/uL (0-0.8); Hemoglobin 9.9 g/dL (12.2-16.2); Mean Corpuscular Hemoglobin 24.7 pg (28.0-32.0); Mean Corpuscular Hgb Conc. 31.2 g/dL (32.0-36.0); Monocytes # (auto) 1.2 10 ^3/uL (0-1.3)
[2023-01-24 03:54] LABS: Eosinophils % (auto) 0.1 % (0.0-7.0); Hematocrit 31.6 % (36.0-46.0); Lymphocytes # (auto) 2.1 10 ^3/uL (0.4-5.4); Mean Corpuscular Volume 79.3 fL (80.0-100.0); Monocytes % (auto) 7.2 % (0.0-12.0); Neutrophils # (auto) 12.9 10 ^3/uL (1.6-8.6); Neutrophils % (auto) 79.5 % (37.0-80.0); Red Blood Cells 3.98 10^6/uL (4.0-5.20); White Blood Cell 16.2 10^3/uL (4.4-10.8)
[2023-01-24 04:08] LABS: Alanine Aminotransferase 78 U/L (7-40); Albumin 3.7 g/dL (3.2-4.8); Alkaline Phosphatase 49 U/L (46-116); Anion Gap 2 (5-15); Aspartate Aminotransferase 16 U/L (13-40); BUN/Creatinine Ratio 40.3 (10.0-20.0); Bilirubin, Total 0.3 mg/dL (0.2-1.0); Blood Urea Nitrogen 27 mg/dL (9-23); Calcium 8.5 mg/dL (8.7-10.4); Carbon Dioxide 34 mmol/L (20-30); Chloride 101 mmol/L (98-107); Glucose 177 mg/dL (74-106); Magnesium 2.5 mg/dL (1.6-2.6); Phosphorus 3.7 mg/dL (2.4-5.1); Potassium 5.1 mmol/L (3.5-5.1); Sodium 137 mmol/L (136-145); Total Protein 5.8 g/dL (5.7-8.2)
[2023-01-24] MEDS: GABAPENTIN 300 MG CAP PO SCH ×3 (05:20→21:32)
[2023-01-24] MEDS: methylPREDNISolone SOD SUCC 40 MG/ML VL IV SCH ×3 (05:20→21:32)
[2023-01-24] MEDS: ACCU-CHEK COMFORT CURVE STRIP VI SCH ×3 (05:42→16:39)
[2023-01-24] MEDS: InsuLIN REG 1unit/0.01ml Soln (100units/ml) SC SCH ×3 (05:42→16:39)
[2023-01-24] MEDS: BUDESONIDE (INHALATION) 0.5 MG/2 ML NEB NEB SCH ×2 (06:14→18:14)
[2023-01-24 07:01] LABS: Base Excess 6.6 mmol/L (-2.0-2.0)
[2023-01-24] MEDS: FUROSEMIDE 20 MG/2 ML VIAL IV SCH (07:45)
[2023-01-24] MEDS: ASPirin 81 mg TAB PO SCH (07:45)
[2023-01-24] MEDS: QUEtiapine FUMARATE 25 MG TAB PO SCH ×2 (07:45→21:32)
[2023-01-24] MEDS: cefTRIAXone 1GM/50ML D5W 50 ML IV SCH (07:46)
[2023-01-24] MEDS: ENOXAPARIN SOD 40 MG/0.4 ML SYRINGE SC SCH (07:46)
[2023-01-24] MEDS: NOREPINEPHRINE 8 MG/250ML KIT 250 ML IV SCH ×2 (14:31→21:32)
[2023-01-24] MEDS ORDERED: TPN PER PHARMACY IV NR ×8 (20:00)
[2023-01-24] MEDS: PROPOFOL 100 ML IV SCH (21:31)
[2023-01-25] VITALS (108 sets, daily range): BP systolic 89–175; BP diastolic 49–131; PULSE 58–143; RESP 6–39; TEMP 97.2–99.3; O2SAT 93–100
[2023-01-25] MEDS: ACCU-CHEK COMFORT CURVE STRIP VI SCH ×5 (00:25→23:43)
[2023-01-25] MEDS: INSULIN LANTUS (GLARGINE) 1 /0.01ml (100units/ml) SC SCH ×2 (00:31→23:42)
[2023-01-25] MEDS: InsuLIN REG 1unit/0.01ml Soln (100units/ml) SC SCH ×5 (00:32→23:43)
[2023-01-25] MEDS: IPRATROPIUM BROM 0.5 MG/2.5ML INH SOL NEB SCH ×6 (02:19→22:01)
[2023-01-25] MEDS: ALBUTEROL SULF 2.5 MG/0.5ML(0.5%) NEB SOLN NEB SCH ×6 (02:19→22:01)
[2023-01-25 04:19] LABS: Triglycerides 213 mg/dL (< 150)
[2023-01-25 04:31] LABS: Alanine Aminotransferase 80 U/L (7-40); Albumin 3.7 g/dL (3.2-4.8); Alkaline Phosphatase 50 U/L (46-116); Anion Gap 1 (5-15); Aspartate Aminotransferase 27 U/L (13-40); BUN/Creatinine Ratio 49.1 (10.0-20.0); Bilirubin, Total 0.3 mg/dL (0.2-1.0); Blood Urea Nitrogen 27 mg/dL (9-23); Calcium 8.4 mg/dL (8.7-10.4); Carbon Dioxide 35 mmol/L (20-30); Chloride 102 mmol/L (98-107); Glucose 169 mg/dL (74-106); Magnesium 2.6 mg/dL (1.6-2.6); Phosphorus 3.5 mg/dL (2.4-5.1); Potassium 4.9 mmol/L (3.5-5.1); Sodium 138 mmol/L (136-145); Total Protein 5.8 g/dL (5.7-8.2)
[2023-01-25] MEDS: methylPREDNISolone SOD SUCC 40 MG/ML VL IV SCH ×3 (06:06→21:39)
[2023-01-25] MEDS: GABAPENTIN 300 MG CAP PO SCH ×3 (06:06→21:39)
[2023-01-25] MEDS: DOPamine 1600MCG/ML D5W 250 ML IV SCH ×2 (06:10→20:45)
[2023-01-25] MEDS: PROPOFOL 100 ML IV SCH ×4 (07:46→22:14)
[2023-01-25] MEDS: hydrALAZINE HCL 20 MG/ML VL IV PRN ×3 (08:35→18:17)
[2023-01-25] MEDS: ENOXAPARIN SOD 40 MG/0.4 ML SYRINGE SC SCH (09:10)
[2023-01-25] MEDS: cefTRIAXone 1GM/50ML D5W 50 ML IV SCH (09:11)
[2023-01-25] MEDS: FUROSEMIDE 20 MG/2 ML VIAL IV SCH (09:11)
[2023-01-25] MEDS: ASPirin 81 mg TAB PO SCH (09:11)
[2023-01-25] MEDS: QUEtiapine FUMARATE 25 MG TAB PO SCH ×2 (09:11→21:39)
[2023-01-25] MEDS ORDERED: CALCIUM GLUC 1,000mg/50ml-NS 50 ML IV ONE (10:45)
[2023-01-25 11:19] LABS: Base Excess 5.6 mmol/L (-2.0-2.0)
[2023-01-25] MEDS: BUDESONIDE (INHALATION) 0.5 MG/2 ML NEB NEB SCH ×2 (12:40→22:01)
[2023-01-25] MEDS ORDERED: SODIUM PHOSPHATES 20 MEQ in SODIUM CHL 0.9% 100 ML IV ONE (13:00)
[2023-01-25] MEDS: fentaNYL Drip 2500mCg/250mlNS 250 ML IV SCH (13:05)
[2023-01-25] MEDS: MIDAZOLAM DRIP 50 mg/50mL 50 ML IV SCH ×2 (16:45→23:35)
[2023-01-25] MEDS ORDERED: TPN PER PHARMACY IV NR ×8 (20:00)
[2023-01-26] VITALS (74 sets, daily range): BP systolic 76–210; BP diastolic 41–140; PULSE 80–141; RESP 17–29; TEMP 97.2–99.5; O2SAT 91–100
[2023-01-26] MEDS: PROPOFOL 100 ML IV SCH ×2 (01:16→06:18)
[2023-01-26] MEDS: IPRATROPIUM BROM 0.5 MG/2.5ML INH SOL NEB SCH ×6 (02:16→22:32)
[2023-01-26] MEDS: ALBUTEROL SULF 2.5 MG/0.5ML(0.5%) NEB SOLN NEB SCH ×6 (02:16→22:32)
[2023-01-26 04:20] LABS: Alanine Aminotransferase 111 U/L (7-40); Albumin 3.6 g/dL (3.2-4.8); Alkaline Phosphatase 51 U/L (46-116); Anion Gap 2 (5-15); Aspartate Aminotransferase 52 U/L (13-40); BUN/Creatinine Ratio 53.2 (10.0-20.0); Blood Urea Nitrogen 33 mg/dL (9-23); Calcium 8.5 mg/dL (8.7-10.4); Carbon Dioxide 37 mmol/L (20-30); Chloride 99 mmol/L (98-107); Glucose 178 mg/dL (74-106); Magnesium 2.6 mg/dL (1.6-2.6); Phosphorus 3.2 mg/dL (2.4-5.1); Potassium 4.3 mmol/L (3.5-5.1); Sodium 138 mmol/L (136-145)
[2023-01-26 04:21] LABS: Bilirubin, Total 0.3 mg/dL (0.2-1.0); Total Protein 5.5 g/dL (5.7-8.2)
[2023-01-26] MEDS: methylPREDNISolone SOD SUCC 40 MG/ML VL IV SCH ×3 (05:46→21:37)
[2023-01-26] MEDS: GABAPENTIN 300 MG CAP PO SCH ×3 (05:46→21:37)
[2023-01-26] MEDS: ACCU-CHEK COMFORT CURVE STRIP VI SCH ×4 (05:53→23:19)
[2023-01-26] MEDS: InsuLIN REG 1unit/0.01ml Soln (100units/ml) SC SCH ×4 (05:54→23:21)
[2023-01-26] MEDS: BUDESONIDE (INHALATION) 0.5 MG/2 ML NEB NEB SCH ×2 (06:31→19:46)
[2023-01-26 08:05] LABS: Base Excess 6.3 mmol/L (-2.0-2.0)
[2023-01-26] MEDS: ENOXAPARIN SOD 40 MG/0.4 ML SYRINGE SC SCH (08:21)
[2023-01-26] MEDS: QUEtiapine FUMARATE 25 MG TAB PO SCH ×2 (08:21→21:37)
[2023-01-26] MEDS: ASPirin 81 mg TAB PO SCH (08:21)
[2023-01-26] MEDS: cefTRIAXone 1GM/50ML D5W 50 ML IV SCH (08:22)
[2023-01-26] MEDS: FUROSEMIDE 20 MG/2 ML VIAL IV SCH (08:22)
[2023-01-26] MEDS: DOPamine 1600MCG/ML D5W 250 ML IV SCH (11:20)
[2023-01-26] MEDS: hydrALAZINE HCL 20 MG/ML VL IV PRN ×2 (12:07→20:24)
[2023-01-26] MEDS: ALPRAZolam 0.5 MG TAB PO PRN (14:17)
[2023-01-26] MEDS: METOPROLOL TARTRATE 1MG/1ML-5ML VIAL IV PRN (15:31)
[2023-01-26] MEDS: fentaNYL Drip 2500mCg/250mlNS 250 ML IV SCH (16:45)
[2023-01-26] MEDS: NOREPINEPHRINE 8 MG/250ML KIT 250 ML IV SCH (18:30)
[2023-01-26] MEDS ORDERED: TPN PER PHARMACY IV NR ×10 (20:00)
[2023-01-26] MEDS: INSULIN LANTUS (GLARGINE) 1 /0.01ml (100units/ml) SC SCH (22:00)
[2023-01-27] VITALS (44 sets, daily range): BP systolic 102–206; BP diastolic 70–128; PULSE 89–120; RESP 15–30; TEMP 97.8–100.4; O2SAT 92–100
[2023-01-27] MEDS: IPRATROPIUM BROM 0.5 MG/2.5ML INH SOL NEB SCH ×6 (01:46→22:46)
[2023-01-27] MEDS: ALBUTEROL SULF 2.5 MG/0.5ML(0.5%) NEB SOLN NEB SCH ×6 (01:46→22:47)
[2023-01-27] MEDS: DOPamine 1600MCG/ML D5W 250 ML IV SCH (01:55)
[2023-01-27] MEDS: METOPROLOL TARTRATE 1MG/1ML-5ML VIAL IV PRN ×2 (02:14→08:28)
[2023-01-27] MEDS: ALPRAZolam 0.5 MG TAB PO PRN ×2 (03:52→13:42)
[2023-01-27 04:29] LABS: Basophils # (auto) 0 10 ^3/uL (0-0.2); Basophils % (auto) 0.2 % (0.0-2.0); Eosinophils # (auto) 0 10 ^3/uL (0-0.8); Hematocrit 34.8 % (36.0-46.0); Hemoglobin 11.2 g/dL (12.2-16.2); Lymphocytes # (auto) 1.5 10 ^3/uL (0.4-5.4); Lymphocytes % (auto) 6.2 % (10.0-50.0); Mean Corpuscular Hemoglobin 25.3 pg (28.0-32.0); Mean Corpuscular Hgb Conc. 32.3 g/dL (32.0-36.0); Mean Corpuscular Volume 78.6 fL (80.0-100.0); Monocytes # (auto) 1.3 10 ^3/uL (0-1.3); Monocytes % (auto) 5.5 % (0.0-12.0); Neutrophils # (auto) 20.7 10 ^3/uL (1.6-8.6); Neutrophils % (auto) 88.1 % (37.0-80.0); Red Blood Cells 4.42 10^6/uL (4.0-5.20); Red Cell Distribution Width 17.7 % (11.8-14.3); White Blood Cell 23.6 10^3/uL (4.4-10.8)
[2023-01-27 05:11] LABS: Alanine Aminotransferase 152 U/L (7-40); Albumin 4.1 g/dL (3.2-4.8); Alkaline Phosphatase 64 U/L (46-116); Anion Gap 6 (5-15); Aspartate Aminotransferase 84 U/L (13-40); BUN/Creatinine Ratio 66.1 (10.0-20.0); Blood Urea Nitrogen 37 mg/dL (9-23); Calcium 9.4 mg/dL (8.5-10.1); Carbon Dioxide 32 mmol/L (20-30); Chloride 100 mmol/L (98-107); Glucose 143 mg/dL (74-106); Potassium 4.1 mmol/L (3.5-5.1); Sodium 138 mmol/L (136-145)
[2023-01-27 05:12] LABS: Bilirubin, Total 0.6 mg/dL (0.2-1.0); Phosphorus 2.9 mg/dL (2.4-5.1); Total Protein 6.4 g/dL (5.7-8.2)
[2023-01-27 05:56] LABS: Magnesium 2.3 mg/dL (1.6-2.6)
[2023-01-27] MEDS: methylPREDNISolone SOD SUCC 40 MG/ML VL IV SCH (06:47)
[2023-01-27] MEDS: GABAPENTIN 300 MG CAP PO SCH ×3 (06:48→22:21)
[2023-01-27] MEDS: ACCU-CHEK COMFORT CURVE STRIP VI SCH ×3 (06:48→18:24)
[2023-01-27] MEDS: InsuLIN REG 1unit/0.01ml Soln (100units/ml) SC SCH ×3 (06:49→18:26)
[2023-01-27] MEDS: BUDESONIDE (INHALATION) 0.5 MG/2 ML NEB NEB SCH ×2 (07:27→19:13)
[2023-01-27] MEDS: cefTRIAXone 1GM/50ML D5W 50 ML IV SCH (08:28)
[2023-01-27] MEDS: ASPirin 81 mg TAB PO SCH (10:02)
[2023-01-27] MEDS: QUEtiapine FUMARATE 25 MG TAB PO SCH ×2 (10:03→22:21)
[2023-01-27] MEDS: FUROSEMIDE 20 MG/2 ML VIAL IV SCH (10:03)
[2023-01-27] MEDS: hydrALAZINE HCL 20 MG/ML VL IV PRN ×2 (10:04→20:41)
[2023-01-27] MEDS: ACETAMINOPHEN 325 MG TAB PO PRN (12:38)
[2023-01-27] MEDS: DOXYCYCLINE 100MG/250ML 250 ML IV SCH (13:26)
[2023-01-27] MEDS: NIFEdipine ER 30 MG TAB PO SCH (14:14)
[2023-01-27] MEDS: LABETALOL HCL 5 MG/ML 4ML SYRINGE IV PRN ×2 (16:13→19:26)
[2023-01-27] MEDS: METOPROLOL TARTRATE 50 MG TAB PO SCH (22:00)
[2023-01-27] MEDS: INSULIN LANTUS (GLARGINE) 1 /0.01ml (100units/ml) SC SCH (22:19)
[2023-01-28] VITALS (51 sets, daily range): BP systolic 100–165; BP diastolic 43–109; PULSE 80–111; RESP 11–27; TEMP 98.5–99.4; O2SAT 88–100
[2023-01-28] MEDS: ACCU-CHEK COMFORT CURVE STRIP VI SCH ×4 (00:17→17:04)
[2023-01-28] MEDS: DOXYCYCLINE 100MG/250ML 250 ML IV SCH ×2 (00:26→12:31)
[2023-01-28] MEDS: ALBUTEROL SULF 2.5 MG/0.5ML(0.5%) NEB SOLN NEB SCH ×6 (02:52→23:09)
[2023-01-28] MEDS: IPRATROPIUM BROM 0.5 MG/2.5ML INH SOL NEB SCH ×6 (02:52→23:09)
[2023-01-28] MEDS: GABAPENTIN 300 MG CAP PO SCH ×3 (05:30→22:03)
[2023-01-28] MEDS: InsuLIN REG 1unit/0.01ml Soln (100units/ml) SC SCH ×4 (05:30→17:04)
[2023-01-28] MEDS: BUDESONIDE (INHALATION) 0.5 MG/2 ML NEB NEB SCH ×2 (06:32→23:09)
[2023-01-28] MEDS ORDERED: methylPREDNISolone SOD SUCC 40 MG/ML VL IV SCH (08:00)
[2023-01-28] MEDS: ASPirin 81 mg TAB PO SCH (08:25)
[2023-01-28] MEDS: NIFEdipine ER 30 MG TAB PO SCH (08:25)
[2023-01-28] MEDS: METOPROLOL TARTRATE 50 MG TAB PO SCH ×2 (08:26→22:04)
[2023-01-28] MEDS: QUEtiapine FUMARATE 25 MG TAB PO SCH ×2 (08:26→22:03)
[2023-01-28] MEDS: cefTRIAXone 1GM/50ML D5W 50 ML IV SCH (08:27)
[2023-01-28 10:52] LABS: Basophils # (auto) 0 10 ^3/uL (0-0.2); Eosinophils # (auto) 0 10 ^3/uL (0-0.8); Monocytes # (auto) 1.4 10 ^3/uL (0-1.3)
[2023-01-28 10:54] LABS: Basophils % (auto) 0.2 % (0.0-2.0); Eosinophils % (auto) 0.1 % (0.0-7.0); Hematocrit 29.6 % (36.0-46.0); Hemoglobin 9.2 g/dL (12.2-16.2); Lymphocytes # (auto) 3.5 10 ^3/uL (0.4-5.4); Lymphocytes % (auto) 17.4 % (10.0-50.0); Mean Corpuscular Hgb Conc. 31.1 g/dL (32.0-36.0); Mean Corpuscular Volume 80.2 fL (80.0-100.0); Neutrophils % (auto) 75.3 % (37.0-80.0); Red Blood Cells 3.69 10^6/uL (4.0-5.20); Red Cell Distribution Width 18.1 % (11.8-14.3)
[2023-01-28 11:31] LABS: Chloride 101 mmol/L (98-107); Potassium 3.9 mmol/L (3.5-5.1); Sodium 138 mmol/L (136-145)
[2023-01-28 11:32] LABS: Anion Gap 6 (5-15); Calcium 8.3 mg/dL (8.5-10.1); Carbon Dioxide 31 mmol/L (20-30)
[2023-01-28 11:37] LABS: BUN/Creatinine Ratio 41.5 (10.0-20.0); Glucose 212 mg/dL (74-106)
[2023-01-28 11:41] LABS: Blood Urea Nitrogen 27 mg/dL (9-23)
[2023-01-28] MEDS: hydrALAZINE HCL 20 MG/ML VL IV PRN (12:31)
[2023-01-28] MEDS ORDERED: ASPI-325 PO (14:25)
[2023-01-28] MEDS ORDERED: GABA-1250 PO (14:25)
[2023-01-28] MEDS ORDERED: MET50T PO (14:25)
[2023-01-28] MEDS ORDERED: NIFE90TA75 PO (14:25)
[2023-01-28] MEDS ORDERED: DOXY-447 PO (14:27)
[2023-01-28] MEDS ORDERED: LACTULOSE 20Gm/30ML SOLN PO ONE (15:00)
[2023-01-28] MEDS: ONDANSETRON HCL 4 MG/2 ML VIAL IV PRN (15:29)
[2023-01-28] MEDS: INSULIN LANTUS (GLARGINE) 1 /0.01ml (100units/ml) SC SCH (22:01)
[2023-01-29] VITALS (15 sets, daily range): BP systolic 97–110; BP diastolic 43–67; PULSE 70–96; RESP 14–20; TEMP 98.3–98.7; O2SAT 94–100
[2023-01-29] MEDS: ACCU-CHEK COMFORT CURVE STRIP VI SCH ×3 (00:12→08:04)
[2023-01-29] MEDS: DOXYCYCLINE 100MG/250ML 250 ML IV SCH ×2 (00:29→12:45)
[2023-01-29] MEDS: IPRATROPIUM BROM 0.5 MG/2.5ML INH SOL NEB SCH ×4 (02:50→15:24)
[2023-01-29] MEDS: ALBUTEROL SULF 2.5 MG/0.5ML(0.5%) NEB SOLN NEB SCH ×4 (02:50→15:24)
[2023-01-29] MEDS: InsuLIN REG 1unit/0.01ml Soln (100units/ml) SC SCH ×3 (06:00→11:42)
[2023-01-29] MEDS: GABAPENTIN 300 MG CAP PO SCH ×2 (06:22→14:01)
[2023-01-29] MEDS: BUDESONIDE (INHALATION) 0.5 MG/2 ML NEB NEB SCH (06:59)
[2023-01-29] MEDS: cefTRIAXone 1GM/50ML D5W 50 ML IV SCH (08:03)
[2023-01-29] MEDS: QUEtiapine FUMARATE 25 MG TAB PO SCH (08:03)
[2023-01-29] MEDS: ASPirin 81 mg TAB PO SCH (08:03)
[2023-01-29] MEDS: METOPROLOL TARTRATE 50 MG TAB PO SCH (08:04)
[2023-01-29] MEDS ORDERED: POLYETHYLENE GLYCOL 17 GM PWDR PO ONE (10:15)
[2023-01-29] MEDS ORDERED: POLYETHYLENE GLYCOL 17 GM PWDR ONE (10:22)
[2023-01-29 10:24] LABS: Base Excess 4.3 mmol/L (-2.0-2.0)
== END 2023-01-29 16:35 | disposition home health service (06) | DRG 720 ==
LOC: EDBD 19:56 → ER 19:56 → EDUNIT# 19:56 → TELE 22:23 → TELE-WESTW 01-15 17:18 → ICU CENTRL 01-17 16:23 → ICU WEST 01-18 16:03 → DOU IN ICU 01-27 16:33 → TELE-CENTR 01-29 14:23
PROVIDERS: ADMIT Nurse Practitioner; ATTEND Nurse Practitioner
PROC: 5A09357 Assistance with Respiratory Ventilation, Less than 24 Consecutive Hours, Continuous Positive Airway Pressure (ICD-10-PCS; 2023-01-15)
PROC: 5A1955Z Respiratory Ventilation, Greater than 96 Consecutive Hours (ICD-10-PCS; principal; 2023-01-17)
PROC: 0BH17EZ Insertion of Endotracheal Airway into Trachea, Via Natural or Artificial Opening (ICD-10-PCS; 2023-01-17)
PROC: 4A143B0 Monitoring of Venous Pressure, Central, Percutaneous Approach (ICD-10-PCS; 2023-01-17)
PROC: 02HV33Z Insertion of Infusion Device into Superior Vena Cava, Percutaneous Approach (ICD-10-PCS; 2023-01-17)
PROC: 5A09357 Assistance with Respiratory Ventilation, Less than 24 Consecutive Hours, Continuous Positive Airway Pressure (ICD-10-PCS; 2023-01-17)
DX: A41.89 Other specified sepsis (principal); J96.01 Acute respiratory failure with hypoxia; J96.02 Acute respiratory failure with hypercapnia; J12.9 Viral pneumonia, unspecified; I21.A1 Myocardial infarction type 2; I11.0 Hypertensive heart disease with heart failure; J10.08 Influenza due to other identified influenza virus with other specified pneumonia; I50.32 Chronic diastolic (congestive) heart failure; E87.8 Other disorders of electrolyte and fluid balance, not elsewhere classified; J44.0 Chronic obstructive pulmonary disease with (acute) lower respiratory infection; J44.1 Chronic obstructive pulmonary disease with (acute) exacerbation; E87.6 Hypokalemia; I16.0 Hypertensive urgency; Z20.822 Contact with and (suspected) exposure to COVID-19; F15.10 Other stimulant abuse, uncomplicated; E66.01 Morbid (severe) obesity due to excess calories; G56.00 Carpal tunnel syndrome, unspecified upper limb; F17.200 Nicotine dependence, unspecified, uncomplicated; F19.10 Other psychoactive substance abuse, uncomplicated; R00.1 Bradycardia, unspecified; R45.1 Restlessness and agitation; Z68.36 Body mass index [BMI] 36.0-36.9, adult; Z90.710 Acquired absence of both cervix and uterus
CPT/HCPCS: 36415; 36600; 70450; 71045; 71275; 80048; 80053; 80061; 81001; 82805; 82962; 83036; 83605; 83735; 83880; 84100; 84443; 84478; 84484; 85025; 85379; 85610; 85730; 87040; 87070; 87077; 87081; 87186; 87205; 87426; 87804; 93005; 93306; 94002; 94003; 94640; 94660; 97110; 97116; 97163; 97530; 99291; G0378; J0330; J0696; J1815; J2250; J2405; J2543; J2704; J3490; J7060; J7131

== ENCOUNTER 2023-02-07 07:01 | Inpatient (IN) | payer MEDICAID ==
[~2023-02-07] VITALS: Ht 157.5 cm; Wt 85.9 kg
[~2023-02-07 07:01] MED LIST changes: +ASPI-325 PO; -CYCL-837 PO; +DOXY-447 PO; +GABA-1250 PO; -IBUP-1455 PO; +MET50T PO; +NIFE90TA75 PO
[2023-02-07] MEDS ORDERED: amLODIPine BESYLATE 5 MG TAB PO ONE (07:30)
[2023-02-07 08:01] LABS: Eosinophils # (auto) 0.2 10 ^3/uL (0-0.8); Lymphocytes # (auto) 2.4 10 ^3/uL (0.4-5.4); Monocytes # (auto) 0.5 10 ^3/uL (0-1.3); Monocytes % (auto) 4.7 % (0.0-12.0); Neutrophils # (auto) 6.9 10 ^3/uL (1.6-8.6)
[2023-02-07 08:03] LABS: Basophils # (auto) 0.1 10 ^3/uL (0-0.2); Basophils % (auto) 0.8 % (0.0-2.0); Eosinophils % (auto) 1.7 % (0.0-7.0); Hemoglobin 9.1 g/dL (12.2-16.2); Lymphocytes % (auto) 23.8 % (10.0-50.0); Mean Corpuscular Hemoglobin 26.7 pg (28.0-32.0); Mean Corpuscular Hgb Conc. 32.5 g/dL (32.0-36.0); Red Blood Cells 3.41 10^6/uL (4.0-5.20); Red Cell Distribution Width 19.2 % (11.8-14.3)
[2023-02-07 08:08] LABS: Urine Bacteria FEW /hpf (None Seen); Urine Blood Negative /uL (Negative); Urine Clarity Clear (Clear); Urine Protein, UAD Negative (Negative); Urine Specific Gravity 1.009 (1.001-1.035); Urine Urobilinogen Normal (Negative); Urine WBC 1 /hpf (0 - 5); Urine pH 7.5 (5.0-8.0)
[2023-02-07 08:19] LABS: INR 1.03 (0.9-1.15); Partial Thromboplastin Time 27.1 SEC (24.5-34.5); Prothrombin Time 10.8 sec (9.3-11.8)
[2023-02-07 08:25] LABS: Alanine Aminotransferase 47 U/L (7-40); Albumin 4.1 g/dL (3.2-4.8); Alkaline Phosphatase 80 U/L (46-116); Anion Gap 9 (5-15); Aspartate Aminotransferase 15 U/L (13-40); BUN/Creatinine Ratio 11.5 (10.0-20.0); Bilirubin, Total 0.4 mg/dL (0.2-1.0); Blood Urea Nitrogen 6 mg/dL (9-23); Calcium 9.1 mg/dL (8.5-10.1); Carbon Dioxide 31 mmol/L (20-30); Chloride 101 mmol/L (98-107); Glucose 99 mg/dL (74-106); Sodium 141 mmol/L (136-145); Total Protein 6.2 g/dL (5.7-8.2)
[2023-02-07 08:27] LABS: Urine Color Yellow (Yellow)
[2023-02-07 08:57] LABS: Magnesium 1.5 mg/dL (1.6-2.6)
[2023-02-07] MEDS ORDERED: LISINOPRIL 10 MG TAB PO ONE (11:15)
[2023-02-07] MEDS ORDERED: IOHEXOL 350 MG/ML 100ML IJ ONE (12:00)
[2023-02-07] MEDS ORDERED: NITROGLYCERIN 0.4 MG SL TAB SL PRN (12:15)
[2023-02-07] MEDS ORDERED: ACETAMINOPHEN 325 MG TAB PO PRN (12:15)
[2023-02-07] MEDS ORDERED: HYDROcodone-ACET 5/325MG TAB PO PRN (12:15)
[2023-02-07] MEDS ORDERED: ONDANSETRON HCL 4 MG/2 ML VIAL IV PRN (12:15)
[2023-02-07] MEDS ORDERED: TEMAZEPAM 15 MG CAP PO PRN (12:15)
[2023-02-07] MEDS ORDERED: DOCUSATE SOD 100 MG CAP PO PRN (12:15)
[2023-02-07] MEDS ORDERED: ALBUTEROL SULF 2.5 MG/0.5ML(0.5%) NEB SOLN NEB PRN (12:15)
[2023-02-07] MEDS ORDERED: MORPHINE SULFATE INJ 2 MG/ml SYRG IV PRN (12:15)
[2023-02-07 13:20] VITALS: O2SAT 95
[2023-02-07 13:52] VITALS: BP 150/89; PULSE 98; RESP 18; O2SAT 95
[2023-02-07] MEDS ORDERED: GABAPENTIN 300 MG CAP PO SCH (14:00)
[2023-02-07 19:32] LABS: Amphetamine Screen, Urine Neg (NEGATIVE); Barbiturate Scree,Urine Neg (NEGATIVE); Benzodiazephine Screen, Urine Neg (NEGATIVE)
[2023-02-07 19:33] LABS: Cannabinoid Screen, Urine Neg (NEGATIVE); Cocaine Screen, Urine Neg (NEGATIVE); Opiate Scree,Urine Neg (NEGATIVE); Phencyclidine Screen, Urine Neg (NEGATIVE)
[2023-02-07] MEDS ORDERED: METOPROLOL TARTRATE 50 MG TAB PO SCH (22:00)
[2023-02-08] MEDS ORDERED: PANTOPRAZOLE 40 MG TAB PO SCH (10:00)
[2023-02-08] MEDS ORDERED: NIFEdipine ER 30 MG TAB PO SCH (10:00)
[2023-02-08] MEDS ORDERED: ASPirin-EC 81 mg tab PO SCH (10:00)
[2023-02-08] MEDS ORDERED: ENOXAPARIN SOD 40 MG/0.4 ML SYRINGE SC SCH (10:00)
== END 2023-02-07 15:20 | disposition left against medical advice (07) | DRG 199 ==
LOC: ER 07:01 → TELE 12:01
PROVIDERS: ADMIT Nurse Practitioner; ATTEND Nurse Practitioner
DX: I16.0 Hypertensive urgency (principal); F17.210 Nicotine dependence, cigarettes, uncomplicated; J45.909 Unspecified asthma, uncomplicated; Z53.29 Procedure and treatment not carried out because of patient's decision for other reasons; R79.89 Other specified abnormal findings of blood chemistry; Z87.01 Personal history of pneumonia (recurrent)
CPT/HCPCS: 36415; 70450; 71045; 71275; 80053; 80307; 81001; 83735; 83880; 84484; 85025; 85379; 85610; 85730; 93005; 93970; G0378

== ENCOUNTER 2024-12-14 16:43 | Emergency (ER) | payer MEDICAID ==
[~2024-12-14] VITALS: Ht 157.5 cm; Wt 90.1 kg
[~2024-12-14 16:43] MED LIST changes: -DOXY-447 PO; +DOXY1CAP58 PO
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
[2024-12-14 17:54] LABS: Hematocrit 39.3 % (36.0-46.0); Hemoglobin 12.6 g/dL (12.2-16.2); Mean Corpuscular Hemoglobin 26.7 pg (28.0-32.0); Mean Corpuscular Volume 83.2 fL (80.0-100.0); Nucleated Red Blood Cells % 0.1 %
[2024-12-14 18:04] LABS: Alanine Aminotransferase 14 U/L (7-40); Albumin 4.6 g/dL (3.2-4.8); Alkaline Phosphatase 105 U/L (46-116); Anion Gap 7 (5-15); BUN/Creatinine Ratio 11.8 (10.0-20.0); Blood Urea Nitrogen 10 mg/dL (9-23); Calcium 9.5 mg/dL (8.7-10.4); Chloride 104 mmol/L (98-107); Lipase 34 U/L (12-53); Total Protein 7.5 g/dL (5.7-8.2)
--- NOTE | 2024-12-14 18:04 | ECG ---
[facility] Test Date: 2024-12-14 Test Time: 18:01:47 Pat Name: KINZA DELGADO Department: Room: Gender: F Records Analysis Manager: BREN : 1965 Requested By: YOSEF JOSE Order Number: [id number] Reading MD: Measurements Intervals [place] Rate: 88 P: 59 NE: 168 QRS: 62 QRSD: 89 T: 89 QT: 406 QTc: 492 Interpretive Statements Sinus rhythm Nonspecific T abnormalities, lateral leads Borderline prolonged QT interval Baseline wander in lead(s) I,II,aVR,aVF,V1,V5,V6 Please click the below link to view image of tracing.
[2024-12-14 18:05] LABS: Bilirubin, Total 0.3 mg/dL (0.2-1.0); Carbon Dioxide 35 mmol/L (20-31); Glucose 109 mg/dL (74-106); Potassium 3.4 mmol/L (3.5-5.1); Sodium 146 mmol/L (136-145)
--- NOTE | 2024-12-14 18:32 | DVH ---
INDICATION: r/o cholecystitis TECHNIQUE: Multiple real-time sonographic images of the abdomen were obtained. COMPARISON: None FINDINGS: Liver appears homogeneous. The liver measures 15.4 cm. No intrahepatic biliary ductal dilatation is noted. The gallbladder wall measures 2.2 mm and is unremarkable. No gallstones or sludge is seen. The common duct measures 0.5 cm and is unremarkable. No pericholecystic fluid is noted. Negative sonographic Boyle's sign The right kidney measures 9.1 cm. No hydronephrosis. The pancreas is not well visualized due to obscuration from bowel gas. The visualized portions of the IVC and aorta are grossly unremarkable. IMPRESSION: 1. Liver measures 15.4 cm length. 2. Normal gallbladder with no stones 3. Right kidney is 9.1 cm long with no hydronephrosis.
[2024-12-14] MEDS ORDERED: PANT40TA2 PO (19:23)
[2024-12-14] MEDS ORDERED: SUCR1SUS5 PO (19:23)
[2024-12-14 19:30] VITALS: BP 136/74; PULSE 76; RESP 20; TEMP 98; O2SAT 98
[2024-12-14] MEDS: POTASSIUM CHL 20 Meq TABLET PO ONE (19:31)
[2024-12-14] MEDS: LIDOCAINE VISCOUS 2% 15ML UD PO ONE (19:32)
[2024-12-14] MEDS: MAALOX PLUS or MAALOX 30 ML PO ONE (19:32)
== END 2024-12-14 19:55 | disposition home or self-care (01) ==
LOC: ER 16:43
DX: R10.13 Epigastric pain (principal); K29.70 Gastritis, unspecified, without bleeding; I10 Essential (primary) hypertension; F17.210 Nicotine dependence, cigarettes, uncomplicated; Z79.82 Long term (current) use of aspirin; Z79.899 Other long term (current) drug therapy; Z96.641 Presence of right artificial hip joint
CPT/HCPCS: 36415; 76705; 80053; 83690; 84484; 85025; 93005